=== PATIENT | male | born 1970 | race African-American/Black ===

== ENCOUNTER → 2017-06-20 | Outpatient (CLI) | payer OTHER ==
[2016-04-10 13:44] VITALS: BP 180/98
[~2017-06-20] MED LIST: CIPR500T94 PO; HYDR-971 PO; TAMS0.4C97 PO
--- NOTE | 2017-06-20 16:31 | RAD ---
Ultrasound renal Indication: Acute renal failure Technique: Grayscale and color Doppler ultrasound images of the bilateral kidneys. Comparison: None Findings: The right kidney measures 12.6 x 5.5 x 6.3 cm without evidence of hydronephrosis. The left kidney measures 12.6 x 6.2 x 5.1 cm without evidence of hydronephrosis. Blood flow is demonstrated in bilateral renal chapin. There is circumferential bladder wall thickening. The prevoid bladder volume measures 176-mL. Bilateral ureteral jets are visualized. Impression: 1. No hydronephrosis. 2. Circumferential bladder wall thickening may be secondary to cystitis. Correlate with urinalysis.
== END | disposition home or self-care (01) ==
LOC: US 14:04
PROVIDERS: ATTEND Internal Medicine
DX: N17.9 Acute kidney failure, unspecified (principal); M79.662 Pain in left lower leg
CPT/HCPCS: 76770

== ENCOUNTER → 2020-04-30 | Outpatient (CLI) | payer MEDICAID, OTHER ==
[2016-04-10 13:44] VITALS: BP 180/98
[~2020-04-30] MED LIST changes: +HYDR-3164 PO; -HYDR-971 PO
--- NOTE | 2020-04-30 11:02 | KCIC ---
EXAM: CT Head without IV contrast INDICATION: Reason: HEADACHE, INJURY A FEW WEEKS AGO, SYNCOPE AND COLLAPSE / Spl. Instructions: / History: TECHNIQUE: Multi-detector row CT images were obtained of the head without the use of IV contrast. All CT scans performed at this facility utilize dose optimization techniques as appropriate to the exam, including the following: Automated exposure control and adjustment of the mA and/or KV according to patient size (this includes techniques or standardized protocols for targeted exams where dose is indication/reason for exam). COMPARISON: None FINDINGS: BRAIN PARENCHYMA: No evidence of acute intraparenchymal hemorrhage or infarct. No abnormal parenchymal density or mass. VENTRICLES & EXTRA-AXIAL SPACES: Ventricles are within normal limits. Basilar cisterns are patent. No pathologic extra-axial fluid collection or mass. ORBITS: Orbital contents are unremarkable. SINUSES: Visualized paranasal sinuses and mastoid air cells are clear. OSSEOUS & SOFT TISSUES: Calvarium and skull base are intact. IMPRESSION: Normal CT of the head without contrast. EXAM: CT HEAD WO CONTRAST, CHEST PA LATERAL INDICATION: Cough, smoker, chest pain.. TECHNIQUE: PA and lateral views COMPARISON: None FINDINGS: The heart size is normal. The great vessels appear unremarkable. There is no hilar or mediastinal mass. The lungs are hypoventilatory with linear densities in the bilateral lower lobes. There is no pleural effusion or pneumothorax. There are no significant osseous abnormalities. IMPRESSION: Bibasilar linear densities, likely reflecting atelectasis. Superimposed pneumonitis or pneumonia are not excluded. Electronically signed by: Shaun Saucedo MD (04/30/2020 10:59 AM) [id number]
== END | disposition home or self-care (01) ==
LOC: KCIC CT 10:10
PROVIDERS: ATTEND Nurse Practitioner Family
DX: S09.90XA Unspecified injury of head, initial encounter (principal); R51 Headache; R05 Cough; R55 Syncope and collapse; F17.200 Nicotine dependence, unspecified, uncomplicated; X58.XXXA Exposure to other specified factors, initial encounter; Y93.89 Activity, other specified; Y92.89 Other specified places as the place of occurrence of the external cause; Y99.8 Other external cause status
CPT/HCPCS: 70450; 71046

== ENCOUNTER 2021-04-15 15:16 | Emergency (ER) | payer MEDICAID ==
[2016-04-10 13:44] VITALS: BP 180/98
== END 2021-04-15 18:00 | disposition left against medical advice (07) ==
LOC: ER 15:16
DX: R50.9 Fever, unspecified (principal); R19.7 Diarrhea, unspecified; Z53.21 Procedure and treatment not carried out due to patient leaving prior to being seen by health care provider